=== PATIENT | male | born 1955 | race Caucasian/White ===

== ENCOUNTER 2019-04-11 13:43 | Emergency (ER) | payer OTHER ==
--- NOTE | 2019-04-11 15:40 | ER ---
Nurse's Notes [facility] [place] Name: Nic Esquivel Age: 63 yrs Sex: Male : 1955 Arrival Date: 04/11/2019 Time: 13:47 Bed Treatment Private MD: Diagnosis: Essential (primary) hypertension Presentation: 04/11 13:55 Presenting complaint: Child states: home health nurse took his BP and it was 186/110, iw gave him his BP med and it was still high, denies headache, dizziness, or blurry vision, denies chest pain. Transition of care: patient was not received from another setting of care. Onset of symptoms was April 11, 2019. Risk Assessment: Do you want to hurt yourself or someone else? Patient reports no desire to harm self or others. Initial Sepsis Screen: Does the patient meet any 2 criteria? No. Patient's initial sepsis screen is negative. Does the patient have a suspected source of infection? No. Patient's initial sepsis screen is negative. Care prior to arrival: None. 13:55 Method Of Arrival: Ambulatory iw 13:55 Acuity: JIN 3 iw Historical: - Allergies: 14:00 No Known Allergies; iw - Home Meds: 14:00 omeprazole 40 mg oral cpDR once daily [Active]; gemfibrozil 600 mg Oral tab 1 tab 2 iw times per day [Active]; Invokana 100 mg oral tab 1 tab once daily [Active]; clonidine HCl 0.3 mg Oral tab three times a day [Active]; minoxidil 10 mg Oral tab 1 tab once daily [Active]; metformin 500 mg Oral tr24 twice a day [Active]; rosuvastatin 10 mg oral tab 1 tab once daily [Active]; amlodipine 5 mg tab 1 tab once daily [Active]; - PMHx: 14:00 AAA; CVA; Deaf; Diabetes - NIDDM; Hyperlipidemia; Hypertension; iw - PSHx: 14:00 Hernia repair; AAA repair; iw - Immunization history:: Adult Immunizations not up to date. - Social history:: Smoking status: Patient/guardian denies using tobacco. - Ebola Screening: : Patient negative for fever greater than or equal to 101.5 degrees Fahrenheit, and additional compatible Ebola Virus Disease symptoms Patient denies exposure to infectious person Patient denies travel to an Ebola-affected area in the 21 days before illness onset No symptoms or risks identified at this time. Screenin:30 Abuse screen: Denies threats or abuse. Denies injuries from another. Nutritional iw screening: No deficits noted. Tuberculosis screening: No symptoms or risk factors identified. Fall Risk None identified. Assessment: 14:30 General: Appears in no apparent distress. Behavior is calm, cooperative. Neuro: Level iw of Consciousness is awake, alert, obeys commands, Oriented to person, place, time, situation, Moves all extremities. Full function. Cardiovascular: Patient's skin is warm and dry. Respiratory: Respiratory effort is even, unlabored. Derm: Skin is intact, is healthy with good turgor. Musculoskeletal: Range of motion: intact in all extremities. 15:28 Reassessment: Patient appears in no apparent distress at this time. Patient and/or iw family updated on plan of care and expected duration. Pain level reassessed. Patient is alert, oriented x 3, equal unlabored respirations, skin warm/dry/pink. daughter reports that she thinks his BP was high because the provider just showed up to his house unannounced and he's not used to answering all those questions so he was worked up and stressed about that, daughter does not want a work up, was just wanting his BP to go down Patient denies pain at this time. 15:35 Pain: Denies pain. iw Vital Signs: 14:00 BP 147 / 84; Pulse 87; Resp 16; Temp 98.2; Pulse Ox 100% on R/A; Pain 0/10; iw 15:28 BP 140 / 83; Pulse 86; Resp 16 S; Pulse Ox 97% on R/A; Pain 0/10; iw ED Course: 13:47 Patient arrived in ED. rg4 13:56 Triage completed. iw 14:00 Arm band placed on. iw 14:30 Patient has correct armband on for positive identification. iw 15:31 Anais Rader, LEONARDA is Primary Nurse. iw 15:35 Daniel Hernandez PA is PHCP. jr8 15:35 Paige Poe MD is Attending Physician. jr8 15:49 No provider procedures requiring assistance completed. Patient did not have IV access iw during this emergency room visit. Administered Medications: No medications were administered Outcome: 15:40 Discharge ordered by . jr8 15:52 Discharged to home ambulatory, with family. ramya 15:52 Condition: good 15:52 Discharge instructions given to family, Instructed on discharge instructions, follow up and referral plans. Demonstrated understanding of instructions, follow-up care. 15:54 Patient left the ED. Signatures: Anais Rader RN Aviva Pierre RN RN Daniel Hernandez PA PA jr8 Radha Sagastume rg4
--- NOTE | 2019-04-11 15:40 | EDPHYS ---
Physician Documentation [facility] Name: Nic Esquivel Age: 63 yrs Sex: Male : 1955 Arrival Date: 04/11/2019 Time: 13:47 Bed Treatment Private MD: ED Physician Paige Poe HPI: 04/11 15:47 This 63 yrs old Male presents to ER via Ambulatory with complaints of High jr8 Blood Pressure. 15:47 The patient has elevated blood pressure and discovered this at home. Onset: The jr8 symptoms/episode began/occurred acutely, today. Modifying factors: The symptoms are aggravated by stress, The symptoms are alleviated by remaining still. Associated signs and symptoms: The patient has no apparent associated signs or symptoms. Severity of symptoms: At its worst the blood pressure was moderate, in the emergency department the blood pressure is now normal. The blood pressure problem is resolved. It is unknown whether or not the patient has had similar symptoms in the past. The patient has not recently seen a physician. Family stated that patient was visited by a [employer] sales representative meats today. Patient is deff and could not understand the lady well. Was frustrated at the time and blood pressure had elevated without being symptomatic. Was advised to come to ED. Patient's BP now normal and still without any symptoms. Historical: - Allergies: 14:00 No Known Allergies; iw - Home Meds: 14:00 omeprazole 40 mg oral cpDR once daily [Active]; gemfibrozil 600 mg Oral tab 1 tab 2 iw times per day [Active]; Invokana 100 mg oral tab 1 tab once daily [Active]; clonidine HCl 0.3 mg Oral tab three times a day [Active]; minoxidil 10 mg Oral tab 1 tab once daily [Active]; metformin 500 mg Oral tr24 twice a day [Active]; rosuvastatin 10 mg oral tab 1 tab once daily [Active]; amlodipine 5 mg tab 1 tab once daily [Active]; - PMHx: 14:00 AAA; CVA; Deaf; Diabetes - NIDDM; Hyperlipidemia; Hypertension; iw - PSHx: 14:00 Hernia repair; AAA repair; iw - Immunization history:: Adult Immunizations not up to date. - Social history:: Smoking status: Patient/guardian denies using tobacco. - Ebola Screening: : Patient negative for fever greater than or equal to 101.5 degrees Fahrenheit, and additional compatible Ebola Virus Disease symptoms Patient denies exposure to infectious person Patient denies travel to an Ebola-affected area in the 21 days before illness onset No symptoms or risks identified at this time. ROS: 15:47 Eyes: Negative for injury, pain, redness, and discharge, ENT: Negative for injury, jr8 pain, and discharge, Neck: Negative for injury, pain, and swelling, Cardiovascular: Negative for chest pain, palpitations, and edema, Respiratory: Negative for shortness of breath, cough, wheezing, and pleuritic chest pain, Abdomen/GI: Negative for abdominal pain, nausea, vomiting, diarrhea, and constipation, Back: Negative for injury and pain, MS/Extremity: Negative for injury and deformity, Skin: Negative for injury, rash, and discoloration, Neuro: Negative for headache, weakness, numbness, tingling, and seizure. Exam: 15:47 Eyes: Pupils equal round and reactive to light, extra-ocular motions intact. Lids and jr8 lashes normal. Conjunctiva and sclera are non-icteric and not injected. Cornea within normal limits. Periorbital areas with no swelling, redness, or edema. ENT: Nares patent. No nasal discharge, no septal abnormalities noted. Tympanic membranes are normal and external auditory canals are clear. Oropharynx with no redness, swelling, or masses, exudates, or evidence of obstruction, uvula midline. Mucous membranes moist. Neck: Trachea midline, no thyromegaly or masses palpated, and no cervical lymphadenopathy. Supple, full range of motion without nuchal rigidity, or vertebral point tenderness. No Meningismus. Cardiovascular: Regular rate and rhythm with a normal S1 and S2. No gallops, murmurs, or rubs. Normal PMI, no JVD. No pulse deficits. Respiratory: Lungs have equal breath sounds bilaterally, clear to auscultation and percussion. No rales, rhonchi or wheezes noted. No increased work of breathing, no retractions or nasal flaring. Abdomen/GI: Soft, non-tender, with normal bowel sounds. No distension or tympany. No guarding or rebound. No evidence of tenderness throughout. Back: No spinal tenderness. No costovertebral tenderness. Full range of motion. Skin: Warm, dry with normal turgor. Normal color with no rashes, no lesions, and no evidence of cellulitis. MS/ Extremity: Pulses equal, no cyanosis. Neurovascular intact. Full, normal range of motion. Neuro: Awake and alert, GCS 15, oriented to person, place, time, and situation. Cranial nerves II-XII grossly intact. Motor strength 5/5 in all extremities. Sensory grossly intact. Cerebellar exam normal. Normal gait. Vital Signs: 14:00 BP 147 / 84; Pulse 87; Resp 16; Temp 98.2; Pulse Ox 100% on R/A; Pain 0/10; iw 15:28 BP 140 / 83; Pulse 86; Resp 16 S; Pulse Ox 97% on R/A; Pain 0/10; iw MDM: 15:35 Patient medically screened. jr8 15:39 Data reviewed: vital signs, nurses notes, and as a result, I will discharge patient. jr8 Data interpreted: Pulse oximetry: on room air is 97 %. Interpretation: normal. Counseling: I had a detailed discussion with the patient and/or guardian regarding: the historical points, exam findings, and any diagnostic results supporting the discharge/admit diagnosis, the need for outpatient follow up, a family practitioner, to return to the emergency department if symptoms worsen or persist or if there are any questions or concerns that arise at home. Administered Medications: No medications were administered Disposition: 18:49 Co-signature as Attending Physician, Paige Poe MD. ma2 Disposition: 04/11/19 15:40 Discharged to Home. Impression: Essential (primary) hypertension. - Condition is Stable. - Discharge Instructions: Hypertension, Heart Disease Prevention, DASH Eating Plan, Managing Your Hypertension, Form - Return To Work. - Family Work Release, Medication Reconciliation Form, Thank You Letter, Antibiotic Education, Prescription Opioid Use form. - Follow up: Private Physician; When: As needed; Reason: Recheck today's complaints, Continuance of care, Re-evaluation by your physician. - Problem is new. - Symptoms are resolved. Signatures: Anais Rader RN RN Aviva Bullock RN RN ss Daniel Hernandez PA PA jr8 Paige Poe MD MD ma2 Corrections: (The following items were deleted from the chart) 15:54 15:40 04/11/2019 15:40 Discharged to Home. Impression: Essential (primary) ss hypertension. Condition is Stable. Forms are Medication Reconciliation Form, Thank You Letter, Antibiotic Education, Prescription Opioid Use. Follow up: Private Physician; When: As needed; Reason: Recheck today's complaints, Continuance of care, Re-evaluation by your physician. Problem is new. Symptoms are resolved. jr8
[2019-04-11 15:58] VITALS: TEMP 98.2
[2019-04-11 15:59] VITALS: BP 140/83; O2SAT 97
== END 2019-04-11 15:54 | disposition home or self-care (01) ==
LOC: ER 13:43
DX: I10 Essential (primary) hypertension (principal); E78.5 Hyperlipidemia, unspecified; E11.9 Type 2 diabetes mellitus without complications
CPT/HCPCS: 99281